=== PATIENT | male | born 1985 | race African-American/Black ===

== ENCOUNTER 2017-10-14 16:23 | Emergency (ER) | payer OTHER, SELFPAY ==
[2017-10-14] MEDS ORDERED: HYDROcodone/Acetaminophen 5/325 mg Tablet ONE (16:36)
--- NOTE | 2017-10-14 18:34 | RAD ---
RIGHT ELBOW FOUR VIEWS: INDICATIONS: Fell off ladder, bracing himself with his hands. FINDINGS: There is a moderately distracted medial humeral epicondylar fracture. Fracture margins appear well c orticated. It is difficult to determine the acuity of this fracture itself. There is a well cortica sofie fracture fragment seen within the posterior elbow joint, adjacent to the olecranon process, which also appears to be a small intraarticular body. No joint capsular distention is evident. IMPRESSION: 1. Remote appearing medial humeral epicondylar fracture. 2. Small intraarticular body seen within the posterior aspect of the elbow joint. No joint capsular distention is noted. POS: [facility]
== END 2017-10-14 17:20 | disposition home or self-care (01) ==
LOC: SCSER 16:23
DX: S42.441A Displaced fracture (avulsion) of medial epicondyle of right humerus, initial encounter for closed fracture (principal); F17.210 Nicotine dependence, cigarettes, uncomplicated; W11.XXXA Fall on and from ladder, initial encounter; Y99.0 Civilian activity done for income or pay
CPT/HCPCS: 29105